=== PATIENT | female | born 1950 | race Caucasian/White ===

== ENCOUNTER 2017-05-28 12:51 | Emergency (ER) | payer OTHER ==
[2017-05-28 13:15] VITALS: BMI 26.9
[2017-05-28] MEDS ORDERED: diazePAM 2 MG TABLET PO ONE (13:35)
--- NOTE | 2017-05-28 13:39 | PDOC ---
History of Present Illness - General Chief Complaint: Back Pain Stated Complaint: LOWER BACK PAIN Time Seen by Provider: 05/28/17 12:53 - History of Present Illness Initial Comments: 05/28/17 13:36 67 F with no PMH presents to ED with lower back pain x 2 days. Pt states that she first noticed mild back pain a week ago that acutely worsened yesterday. Pt denies any injuries or falls that she can recall. The pain is mainly localized to her L lower back. She states the pain is worse with standing and moving around. At rest, she states the pain is tolerable. Denies lower extremity numbness or weakness, denies loss of bowel or bladder control, denies saddle anesthesia. Pt notes that she was treated for a UTI and PNA earlier this month. She denies any dysuria at this time. Denies F/C. Denies CP/SOB. Past History - Past Medical History Allergies/Adverse Reactions: Allergies Allergy/AdvReac Type Severity Reaction Status Date / Time Penicillins Allergy Mild Verified 05/28/17 13:01 Home Medications: Ambulatory Orders Clonazepam 0.5 mg PO HS 05/28/17 Diphenoxylate HCl/Atropine [Diphenoxylate-Atrop 2.5-0.025] 10 each PO ASDIR Escitalopram Oxalate [Lexapro -] 15 mg PO DAILY 05/28/17 Omeprazole 40 mg PO DAILY 05/28/17 Ondansetron HCl [Zofran] 8 mg PO PRN PRN 05/28/17 Oxycodone HCl/Acetaminophen [Percocet 5-325 mg Tablet] 1 tab PO Q6H PRN #12 tablet MDD 4 tabs 05/28/17 COPD: No GI Disorders: Yes (coliits) Psychiatric Problems: Yes Other medical history: PNA 3 weeks ago,DIARRHEA X 3 WEEKS,ECOLI. - Suicide/Smoking/Psychosocial Hx Smoking History: Never smoked Hx Alcohol Use: No Drug/Substance Use Hx: No Substance Use Type: None Review of Systems - Review of Systems Comments:: 05/28/17 13:41 "GENERAL/CONSTITUTIONAL: No fever or chills. No weakness. HEAD, EYES, EARS, NOSE AND THROAT: No change in vision. No ear pain or discharge. No sore throat. CARDIOVASCULAR: No chest pain or shortness of breath. RESPIRATORY: No cough, wheezing, or hemoptysis. GASTROINTESTINAL: No nausea, vomiting, diarrhea or constipation. GENITOURINARY: No dysuria, frequency, or change in urination. MUSCULOSKELETAL: + lower back pain SKIN: No rash NEUROLOGIC: No headache, vertigo, loss of consciousness, or change in strength/ sensation. ENDOCRINE: No increased thirst. No abnormal weight change. HEMATOLOGIC/LYMPHATIC: No anemia, easy bleeding, or history of blood clots. ALLERGIC/IMMUNOLOGIC: No hives or skin allergy. " *Physical Exam - Vital Signs Last Vital Signs Temp Pulse Resp BP Pulse Ox 99.4 F 97 H 18 154/61 97 05/28/17 12:52 05/28/17 12:52 05/28/17 12:52 05/28/17 12:52 05/28/17 12:52 - Physical Exam Comments: 05/28/17 13:42 "GENERAL: Awake, alert, and fully oriented, in no acute distress HEAD: No signs of trauma EYES: PERRLA, EOMI, sclera anicteric, conjunctiva clear ENT: Auricles normal inspection, hearing grossly normal, nares patent, oropharynx clear without exudates. Moist mucosa NECK: Nontender, no stepoffs, Normal ROM, supple, no lymphadenopathy, JVD, or masses LUNGS: Breath sounds equal, clear to auscultation bilaterally. No wheezes, and no crackles HEART: Regular rate and rhythm, normal S1 and S2, no murmurs, rubs or gallops ABDOMEN: Soft, nontender, normoactive bowel sounds. No guarding, no rebound. No masses EXTREMITIES: Normal range of motion, no edema. No clubbing or cyanosis. No cords, erythema, or tenderness NEUROLOGICAL: Cranial nerves II through XII intact. 5/5 strength and sensation in all extremities, Normal speech, normal gait, normal cerebellar function SKIN: Warm, Dry, normal turgor, no rashes or lesions noted. BACK: + L paraspinal TTP, no midline tenderness, no stepoffs ED Treatment Course - LABORATORY CBC & Chemistry Diagram: 05/28/17 13:50 05/28/17 13:50 - RADIOLOGY Radiology Studies Ordered: Category Date Time Status CHEST X-RAY PORTABLE* [RAD] Stat Radiology 05/28/17 13:34 Ordered Medical Decision Making - Medical Decision Making 05/28/17 13:44 67 F with lower back pain x 1 week, acutely worsened yesterday. Possible sciatica vs herniated disc vs spinal stenosis. Pt with no neuro deficits, no symptoms to suggest cauda equina or cord compression. - Labs, UA - Pain control 05/28/17 16:47 Labs with K 2.8, repleted with PO potassium UA with small amount of blood, no infection Pt reassessed - now with significantly improved pain. Pt is well appearing, with normal vitals. Clinically stable for DC at this time. I discussed the physical exam findings, ancillary test results and final diagnoses with the patient. I answered all of the patient's questions. The patient was satisfied with the care received and felt comfortable with the discharge plan and treatment plan. The patient agrees to follow up with the primary care physician within 24-72 hours. *DC/Admit/Observation/Transfer Diagnosis at time of Disposition: Back pain - Discharge Dispostion Disposition: HOME Condition at time of disposition: Fair - Prescriptions Prescriptions: Oxycodone HCl/Acetaminophen [Percocet 5-325 mg Tablet] 1 tab PO Q6H PRN #12 tablet MDD 4 tabs PRN Reason: Back Pain - Referrals Referrals: Kevin Graham MD [Staff Physician] - - Patient Instructions Printed Discharge Instructions: DI for Low Back Pain Additional Instructions: Follow up with your primary care doctor on Wednesday. Call the number provided to make an appointment with an orthopedic surgeon for further evaluation of your lower back pain. If you experience worsening pain, fevers, weakness, numbness, or any other concerning symptoms, return to the ER immediately. - Post Discharge Activity - Attestations Physician Attestion: 05/28/17 16:49 I, Dr. Kevin Nogueira MD, attest that this document has been prepared under my direction and personally reviewed by me in its entirety. I further attest, that it accurately reflects all work, treatment, procedures and medical decision -making performed by me.
[2017-05-28] MEDS ORDERED: diazePAM 2 MG TABLET ONE (13:50)
[2017-05-28 14:20] LABS: BASO % 0.3 % (0-2.0); EOS % 0.1 % (0-4.5); HEMATOCRIT 38.8 % (32.4-45.2); HEMOGLOBIN 13.2 GM/dl (10.7-15.3); LYMPH % 8.7 % (8-40); MCH 30.7 pg (25.7-33.7); MEAN CELL VOLUME 90.1 fl (80-96); MEAN PLT VOLUME 8.1 fl (7.5-11.1); MONO % 6.7 % (3.8-10.2); NEUT % 84.2 % (42.8-82.8); PLATELET COUNT 290 K/MM3 (134-434); RDW 13.1 % (11.6-15.6); WHITE BLOOD COUNT 9.4 K/mm3 (4.0-10.8)
[2017-05-28 14:24] LABS: ALBUMIN 3.2 g/dl (3.5-5.0); ALK PHOS 70 U/L (32-92); ANION GAP 9 (8-16); BILIRUBIN,TOTAL 0.9 mg/dl (0.2-1.0); BLOOD UREA NITROGEN 9 mg/dl (7-18); CALCIUM 8.3 mg/dl (8.4-10.2); CHLORIDE 103 mmol/L (98-107); CO2 24 mmol/L (22-28); CREATININE 0.5 mg/dl (0.6-1.3); GLUCOSE,RANDOM 108 mg/dl (74-106); SGOT/AST 12 U/L (10-42); SGPT/ALT 10 U/L (10-40); SODIUM 136 mmol/L (136-145); TOT PROT 6.1 g/dl (6.4-8.3)
[2017-05-28 14:30] LABS: POTASSIUM 2.8 mmol/L (3.5-5.1)
[2017-05-28] MEDS ORDERED: POTASSIUM CHLORIDE TABS 20 MEQ TABLET.ER (FP) PO ONE ×2 (14:34→14:46)
[2017-05-28 15:56] LABS: PH,URINE 5.5 (4.5-8); URINE APPEARANCE Cloudy; URINE BILIRUBIN 1+ (NEGATIVE); URINE BLOOD Trace-intact (NEGATIVE); URINE GLUCOSE (UA) Negative (NEGATIVE); URINE KETONE Trace (NEGATIVE); URINE LEUK ESTERASE Negative (NEGATIVE); URINE NITRITE Negative (NEGATIVE); URINE PROTEIN 1+ (NEGATIVE); URINE UROBILINOGEN 0.2 (0.2-1.0)
[2017-05-28 15:57] LABS: URINE COLOR DK YELLOW
[2017-05-28 17:03] VITALS: BP 146/84; PULSE 86; TEMP 99
[2017-05-28 17:47] LABS: AMORP URATES MANY /hpf (NONE SEEN); EPI CELLS FEW /HPF; URINE WBC 0-2 (0-5)
[2017-05-28 17:48] LABS: URINE BACTERIA FEW /hpf (NEGATIVE)
--- NOTE | 2017-05-29 18:14 | EKG ---
Test Reason : Blood Pressure : / mmHG Vent. Rate : 090 BPM Atrial Rate : 090 BPM P-R Int : 168 ms QRS Dur : 078 ms QT Int : 368 ms P-R-T Axes : 065 016 049 degrees QTc Int : 450 ms NORMAL SINUS RHYTHM NORMAL ECG WHEN COMPARED WITH ECG OF 11-MAR-2007 09:06, NO SIGNIFICANT CHANGE WAS FOUND Confirmed by MD IGNACIO, DON ([id number]) on 05/29/2017 6:13:54 PM Referred By: ANY MASTERS Confirmed By:DON PIERRE MD
== END 2017-05-28 17:00 | disposition home or self-care (01) ==
LOC: FER 12:51
DX: M54.5 Low back pain (principal)
CPT/HCPCS: 36415; 71045-TC-FY; 80053; 81003; 81015; 82550; 84484; 85025; 93005; 99284-25

== ENCOUNTER 2018-06-06 17:05 | Inpatient (IN) | payer OTHER ==
--- NOTE | 2018-06-06 18:07 | PDOC ---
History of Present Illness - General Chief Complaint: Redness To Affected Area Stated Complaint: CELLULITIS Time Seen by Provider: 06/06/18 17:25 History Source: Patient Exam Limitations: No Limitations - History of Present Illness Initial Comments: 06/06/18 18:09 68y F hx of colitis, emphysema, presents with complaint of facial cellulitis. The patient states it started with some irritation of her eye yesterday, she tried to wash it out and it eventually resolved, but noticed discomfort to the lateral aspect of her L eye and L cheek yesterday that gradually worsened. pt endorses a fever to 102 at home yesterday. Pt dneneis any double vision, headache, neck pain, cough, cp, sob, n/v, abd pain, back pain. PMD: Dr. Colon Past History - Past Medical History Allergies/Adverse Reactions: Allergies Allergy/AdvReac Type Severity Reaction Status Date / Time Penicillins Allergy Mild Verified 05/28/17 13:01 Home Medications: Ambulatory Orders Clonazepam 0.5 mg PO HS PRN 05/28/17 Diphenoxylate HCl/Atropine [Diphenoxylate-Atrop 2.5-0.025] 1 each PO DAILY 05/28 Escitalopram Oxalate [Lexapro -] 15 mg PO DAILY 05/28/17 Omeprazole 40 mg PO DAILY 05/28/17 Ondansetron HCl [Zofran] 8 mg PO PRN PRN 05/28/17 COPD: No GI Disorders: Yes (coliits) Psychiatric Problems: Yes - Surgical History Abdominal Surgery: Yes (DOUBLE HERNIA REPAIR) Cholecystectomy: Yes - Suicide/Smoking/Psychosocial Hx Smoking History: Current every day smoker Number of Cigarettes Smoked Daily: 10 Information on smoking cessation initiated: Yes Hx Alcohol Use: Yes (SOCIAL) Drug/Substance Use Hx: Yes (MARIJUANA) Substance Use Type: None Review of Systems - Review of Systems Able to Perform ROS?: Yes Comments:: 06/06/18 18:25 Constitutional -+Fever, no reported Chills, HEENT: +facial redness/swelling no reported vision changes, sore throat Respiratory: no reported cough, sob, hemoptysis Cardiac: no reported chest pain, palpitations, light headedness, leg swelling Abd/GI: no reported abd pain, nausea, vomiting, blood per rectum, melena, diarrhea : no reported dysuria, frequency, discharge Musculskelatal - no reported back pain, joint swelling skin - no reported bruising, erythema, rash neurological: no reported headache, numbness, focal weakness, tingling, ataxia, hematologic: no reported easy bruising, easy bleeding *Physical Exam - Vital Signs Last Vital Signs Temp Pulse Resp BP Pulse Ox 99.9 F H 88 18 144/71 100 06/06/18 17:07 06/06/18 17:07 06/06/18 17:07 06/06/18 17:07 06/06/18 17:07 - Physical Exam Comments: 06/06/18 18:25 GENERAL: The patient is awake, alert, and fully oriented, Nontoxic - in no acute distress. HEAD: Normocephalic, erythema/swelling/warmth of L face from L supraorbital ridge to latearl canthus to L cheek, no mastoid tenderness, no associated crepitus or areas of fluctuance EYES: extraocular movements intact, sclera anicteric, conjunctiva clear. ENT: Normal voice, dry mmm, some bulging of the L tm, no swelling of tongue or intraoral structures. NECK: Normal range of motion, supple, mild ttp to lateral aspect of L neck LUNGS: Breath sounds equal, clear to auscultation bilaterally. No wheezes, no rhonchi, no rales. HEART: Regular rate and rhythm, normal S1 and S2 without murmur, rub or gallop. ABDOMEN: Soft, nontender, normoactive bowel sounds. No guarding, no rebound. . No CVA tenderness EXTREMITIES: Normal range of motion, no edema. No clubbing or cyanosis. No cords, erythema, or tenderness. NEUROLOGICAL: No facial assymetry, Normal speech, PSYCH: Normal mood, normal affect. SKIN: Warm, Dry, normal turgor, ED Treatment Course - LABORATORY CBC & Chemistry Diagram: 06/07/18 07:14 06/06/18 18:45 Medical Decision Making - Medical Decision Making 06/06/18 18:33 susepct facial cellulitis sepsis orderset obtained will start vancomycin consider CT to eval extent of cellultis to r/o invovlement of deper neck structures *DC/Admit/Observation/Transfer Diagnosis at time of Disposition: Facial cellulitis - Discharge Dispostion Condition at time of disposition: Stable - Referrals - Patient Instructions - Post Discharge Activity
[2018-06-06] MEDS ORDERED: VANCOMYCIN 1 GM in D5W (PRE-DOCKED) 1,000 MG/250 ML IVPB ONE (18:38)
[2018-06-06] MEDS ORDERED: VANCOMYCIN 1,000 MG VIAL (RESTRICTED TO ID ONLY) ONE (18:48)
[2018-06-06 19:14] LABS: BASO % 0.5 % (0-2.0); EOS % 0.2 % (0-4.5); HEMATOCRIT 37.4 % (32.4-45.2); HEMOGLOBIN 12.2 GM/dl (10.7-15.3); LYMPH % 12.7 % (8-40); MCH 29.9 pg (25.7-33.7); MCHC 32.6 g/dl (32.0-36.0); MEAN CELL VOLUME 91.5 fl (80-96); MEAN PLT VOLUME 9.3 fl (7.5-11.1); MONO % 5.6 % (3.8-10.2); PLATELET COUNT 203 K/MM3 (134-434); RBC 4.09 M/mm3 (3.60-5.2); RDW 14.6 % (11.6-15.6); WHITE BLOOD COUNT 8.1 K/mm3 (4.0-10.8)
[2018-06-06 19:26] LABS: ALBUMIN 3.5 g/dl (3.4-5.0); ALK PHOS 75 U/L (45-117); ANION GAP 10 MMOL/L (8-16); BILIRUBIN,TOTAL 0.7 mg/dl (0.2-1); BLOOD UREA NITROGEN 12 mg/dl (7-18); CALCIUM 8.7 mg/dl (8.5-10); CHLORIDE 101 mmol/L (98-107); CO2 25 mmol/L (21-32); CREATININE 0.8 mg/dl (0.55-1.3); GLUCOSE,RANDOM 95 mg/dl (74-106); POTASSIUM 3.6 mmol/L (3.5-5.1); SGOT/AST 13 U/L (15-37); SGPT/ALT 10 U/L (13-61); SODIUM 136 mmol/L (136-145); TOT PROT 6.3 g/dl (6.4-8.2)
[2018-06-06 19:29] LABS: INR 1.3 (0.82-1.09); PROTHROMBIN TIME (PATIENT) 14.5 SEC (10.2-13.0)
--- NOTE | 2018-06-06 19:29 | PDOC ---
*Physical Exam - Vital Signs Last Vital Signs Temp Pulse Resp BP Pulse Ox 99.9 F H 88 18 144/71 100 06/06/18 17:07 06/06/18 17:07 06/06/18 17:07 06/06/18 17:07 06/06/18 17:07 ED Treatment Course - LABORATORY CBC & Chemistry Diagram: 06/06/18 18:45 06/06/18 18:45 - ADDITIONAL ORDERS Additional order review: Laboratory Results 06/06/18 06/06/18 06/06/18 18:50 18:45 18:45 PT with INR 14.5 H INR 1.30 H PTT (Actin FS) 26.0 Sodium 136 Potassium 3.6 Chloride 101 Carbon Dioxide 25 Anion Gap 10 BUN 12 Creatinine 0.8 Creat Clearance w eGFR 71.12 Random Glucose 95 Calcium 8.7 Total Bilirubin 0.7 AST 13 L ALT 10 L Alkaline Phosphatase 75 Troponin I Cancelled Total Protein 6.3 L Albumin 3.5 06/06/18 18:45 RBC 4.09 MCV 91.5 MCHC 32.6 RDW 14.6 D MPV 9.3 Neutrophils % 81.0 Lymphocytes % 12.7 Monocytes % 5.6 Eosinophils % 0.2 Basophils % 0.5 - Medications Given in the ED: ED Medications Discontinued Medications Generic Name Dose Route Start Last Admin Trade Name Freq PRN Reason Stop Dose Admin Vancomycin HCl 1,000 mg 06/06/18 18:38 06/06/18 18:55 Vancomycin (Pre-Docked) IVPB 06/06/18 18:39 1,000 mg ONCE ONE Administration Protocol Progress Note - Progress Note Progress Note: Care of this patient received from . Patient being treated for left-sided facial cellulitis; case discussed with [facility] hospitalist service and she was admitted to Dr. Llanes's service. Facial CT with contrast performed. Interpretation by : No evidence of deep-seated fluid collection/abscess seen. Left parotid gland is slightly larger than the right parotid gland so acute parotiditis not fully ruled out. Left-sided facial edema consistent with cellulitis noted *DC/Admit/Observation/Transfer Diagnosis at time of Disposition: Facial cellulitis - Discharge Dispostion Condition at time of disposition: Stable Decision to Admit order: Yes - Referrals - Patient Instructions - Post Discharge Activity
[2018-06-06 20:36] LABS: VENOUS PC02 40.2 mmHg (41-51); VENOUS PH 7.43 (7.31-7.41); VENOUS PO2 33.8 mmHg (30-40)
--- NOTE | 2018-06-06 21:35 | HP ---
CHIEF COMPLAINT: irritation to left facial/upper cheek and left eye swelling for 2 days, +fever with maximum of 102.3 PCP:Dr. Robinson Cortes HISTORY OF PRESENT ILLNESS: 68 year old female with history of colitis,emphysema and anxiety who presents with irritation to left facial/upper cheek swelling/erythema and left orbital swelling ongoing for 2 days. She reported having a fever yesterday of 102.3 yesterday. She tried to wash it out with water but continued to have heat and swelling . She was found to have left facial cellulitis. Pt denied any double/ blurry vision, headache, neck pain, cough, chest pain, sob, nausea, vomiting, abdominal or back pain. Labs notable for a normal WBC and lactic acid level. She was given one dosage of IV Vancomycin. She is pending a CT of bone and facial. She is being admitted to observation for further medical treatment. Recent Travel: denies PAST MEDICAL HISTORY: emphysema colitis anxiety PAST SURGICAL HISTORY: denies Social History: Smoking:denies Alcohol:denies Drugs: denies Family History: noncontributory Allergies Penicillins Allergy (Mild, Verified 05/28/17 13:01) HOME MEDICATIONS: Home Medications Medication Instructions Recorded Clonazepam 0.5 mg PO HS PRN 05/28/17 Diphenoxylate HCl/Atropine 10 each PO ASDIR 05/28/17 [Diphenoxylate-Atrop 2.5-0.025] Escitalopram Oxalate [Lexapro -] 15 mg PO DAILY 05/28/17 Omeprazole 40 mg PO DAILY 05/28/17 Ondansetron HCl [Zofran] 8 mg PO PRN PRN 05/28/17 REVIEW OF SYSTEMS CONSTITUTIONAL: Absent: fever, chills, diaphoresis, generalized weakness, malaise, loss of appetite, weight change HEENT: Absent: rhinorrhea, nasal congestion, throat pain, throat swelling, difficulty swallowing, mouth swelling, ear pain, eye pain, visual changes,left facial/ upper cheek and orbital swelling with heat CARDIOVASCULAR: Absent: chest pain, syncope, palpitations, irregular heart rate, lightheadedness , peripheral edema RESPIRATORY: Absent: cough, shortness of breath, dyspnea with exertion, orthopnea, wheezing, stridor, hemoptysis GASTROINTESTINAL: Absent: abdominal pain, abdominal distension, nausea, vomiting, diarrhea, constipation, melena, hematochezia GENITOURINARY: Absent: dysuria, frequency, urgency, hesitancy, hematuria, flank pain, genital pain MUSCULOSKELETAL: Absent: myalgia, arthralgia, joint swelling, back pain, neck pain SKIN: Absent: rash, itching, pallor HEMATOLOGIC/IMMUNOLOGIC: Absent: easy bleeding, easy bruising, lymphadenopathy, frequent infections ENDOCRINE: Absent: unexplained weight gain, unexplained weight loss, heat intolerance, cold intolerance NEUROLOGIC: Absent: headache, focal weakness or paresthesias, dizziness, unsteady gait, seizure, mental status changes, bladder or bowel incontinence PSYCHIATRIC: Absent: anxiety, depression, suicidal or homicidal ideation, hallucinations. PHYSICAL EXAMINATION Vital Signs - 24 hr 06/06/18 06/06/18 17:07 20:45 Temperature 99.9 F H 100.3 F H Pulse Rate 88 Pulse Rate [ 84 Right Radial] Respiratory 18 18 Rate Blood Pressure 144/71 Blood Pressure 149/67 [Left Arm] O2 Sat by Pulse 100 95 Oximetry (%) GENERAL: awake, alert and fully oriented HEAD: normal EYES: pupils equal, round and reactive to light, left eyelid with edema EARS, NOSE, THROAT: ears normal nares patent oropharynx clear without exudates NECK: normal range of motion LUNGS: breath sounds equal and clear to auscultation bilaterally no wheezes no crackles no use of accessory muscle use HEART: regular rate and rhythm, normal S1 and S2 ABDOMEN: soft nontender not distended normoactive bowel sounds no guarding no rebound no masses MUSCULOSKELETAL: normal range of motion at all joints no bony deformities or tenderness UPPER EXTREMITIES warm well-perfused no cyanosis LOWER EXTREMITIES: 2+ pulses warm well-perfused no pitting edema NEUROLOGICAL: normal speech PSYCHIATRIC: cooperative SKIN: warm and dry, left upper cheek with swelling and heat Laboratory Results - last 24 hr 06/06/18 06/06/18 06/06/18 18:45 18:45 18:45 WBC 8.1 RBC 4.09 Hgb 12.2 Hct 37.4 MCV 91.5 MCH 29.9 MCHC 32.6 RDW 14.6 D Plt Count 203 MPV 9.3 Absolute Neuts (auto) 6.6 Neutrophils % 81.0 Lymphocytes % 12.7 Monocytes % 5.6 Eosinophils % 0.2 Basophils % 0.5 PT with INR 14.5 H INR 1.30 H PTT (Actin FS) 26.0 VBG pH 7.43 H POC VBG pCO2 40.2 L POC VBG pO2 33.8 VBG HCO3 26.3 VBG O2 Sat (Willian) 60.9 L VBG Base Excess 2.3 H Sodium Potassium Chloride Carbon Dioxide Anion Gap BUN Creatinine Creat Clearance w eGFR Random Glucose Lactic Acid Calcium Total Bilirubin AST ALT Alkaline Phosphatase Troponin I Total Protein Albumin Urine Color Urine Appearance Urine pH Urine Protein Urine Glucose (UA) Urine Ketones Urine Blood Urine Nitrite Urine Bilirubin Urine Urobilinogen Ur Leukocyte Esterase Urine RBC Urine WBC Urine Bacteria 06/06/18 06/06/18 06/06/18 18:45 18:45 18:45 WBC RBC Hgb Hct MCV MCH MCHC RDW Plt Count MPV Absolute Neuts (auto) Neutrophils % Lymphocytes % Monocytes % Eosinophils % Basophils % PT with INR INR PTT (Actin FS) VBG pH POC VBG pCO2 POC VBG pO2 VBG HCO3 VBG O2 Sat (Willian) VBG Base Excess Sodium 136 Potassium 3.6 Chloride 101 Carbon Dioxide 25 Anion Gap 10 BUN 12 Creatinine 0.8 Creat Clearance w eGFR 71.12 Random Glucose 95 Lactic Acid 0.8 Calcium 8.7 Total Bilirubin 0.7 AST 13 L ALT 10 L Alkaline Phosphatase 75 Troponin I < 0.03 Total Protein 6.3 L Albumin 3.5 Urine Color Urine Appearance Urine pH Urine Protein Urine Glucose (UA) Urine Ketones Urine Blood Urine Nitrite Urine Bilirubin Urine Urobilinogen Ur Leukocyte Esterase Urine RBC Urine WBC Urine Bacteria 06/06/18 06/06/18 18:50 20:35 WBC RBC Hgb Hct MCV MCH MCHC RDW Plt Count MPV Absolute Neuts (auto) Neutrophils % Lymphocytes % Monocytes % Eosinophils % Basophils % PT with INR INR PTT (Actin FS) VBG pH POC VBG pCO2 POC VBG pO2 VBG HCO3 VBG O2 Sat (Willian) VBG Base Excess Sodium Potassium Chloride Carbon Dioxide Anion Gap BUN Creatinine Creat Clearance w eGFR Random Glucose Lactic Acid Calcium Total Bilirubin AST ALT Alkaline Phosphatase Troponin I Cancelled Total Protein Albumin Urine Color Yellow Urine Appearance Clear Urine pH 5.5 Urine Protein 1+ H Urine Glucose (UA) Negative Urine Ketones 1+ H Urine Blood 2+ H Urine Nitrite Negative Urine Bilirubin 1+ H Urine Urobilinogen 0.2 Ur Leukocyte Esterase Negative Urine RBC 5-10 Urine WBC 0-2 Urine Bacteria Few ASSESSMENT/PLAN: 68 year old female with history of colitis,emphysema and anxiety who presents with irritation with left facial/upper cheek swelling/erythema and left orbital swelling for 2 days. She reported having a fever yesterday of 102.3. Left Facial Cellulitis Patient is currently afebrile.WBC and lactic acid level are normal. Blood cultures are pending. She received one dosage of IV Vancomycin. Patient has a Penicillin allergy. Continue with IV Vancomycin. CT of bone and facial pending. ID consulted-Dr. Starr consulted. Emphysema No acute exacerbation. DVT Prophylaxsis Continue with SCD's. Anxiety Controlled. Continue with clonazepam. Visit type - Emergency Visit Emergency Visit: Yes ED Registration Date: 06/06/18 Care time: The patient presented to the Emergency Department on the above date and was hospitalized for further evaluation of their emergent condition. - New Patient This patient is new to me today: Yes Date on this admission: 06/07/18 - Critical Care Critical Care patient: No
[2018-06-06 22:18] VITALS: BMI 25.9
[2018-06-07 08:08] LABS: BASO % 0.2 % (0-2.0); EOS % 0.6 % (0-4.5); HEMATOCRIT 35.5 % (32.4-45.2); LYMPH % 14.6 % (8-40); MCHC 33.8 g/dl (32.0-36.0); MEAN CELL VOLUME 91.8 fl (80-96); MEAN PLT VOLUME 9.3 fl (7.5-11.1); MONO % 6.7 % (3.8-10.2); NEUT % 77.9 % (42.8-82.8); PLATELET COUNT 173 K/MM3 (134-434); RBC 3.87 M/mm3 (3.60-5.2); RDW 13.9 % (11.6-15.6); WHITE BLOOD COUNT 6.6 K/mm3 (4.0-10.8)
[2018-06-07] MEDS ORDERED: ACETAMINOPHEN 325 MG TABLET (FP) PO PRN (08:12)
[2018-06-07] MEDS ORDERED: VANCOMYCIN 1 GM in D5W (PRE-DOCKED) 1,000 MG/250 ML IVPB ONE (10:00)
[2018-06-07] MEDS: PANTOPRAZOLE 40 MG TABLET (FP) PO SCH (10:00)
--- NOTE | 2018-06-07 11:14 | PN ---
Physical Exam: SUBJECTIVE: Patient seen and examined at bedside. Denies eye pain. Complains of itchiness to inflamed areas of left side of face. OBJECTIVE: Vital Signs Period Temp Pulse Resp BP Sys/Ferrell Pulse Ox Last 24 Hr 98.6 F-100.4 F 74-93 18-20 120-156/56-71 94-100 GENERAL: The patient is awake, alert, and fully oriented, in no acute distress. HEAD: Deeply erythematous rash left side of face, from forehead to mandible, circumferential around the left eye, eyelid swelling no pus, no exudate EYES: PERRL, extraocular movements intact, sclera anicteric, conjunctiva clear. ENT: Left s NECK: Trachubtonsillar lymph node large, tender LUNGS: Breath sounds equal, clear to auscultation bilaterally, no wheezes, no crackles, no accessory muscle use. HEART: Regular rate and rhythm, S1, S2 ABDOMEN: Soft, nontender, nondistended EXTREMITIES: 2+ pulses, warm, well-perfused, no edema. NEUROLOGICAL: Cranial nerves II through XII grossly intact. Normal speech, self positions easily Laboratory Results - last 24 hr 06/06/18 06/06/18 06/06/18 18:45 18:45 18:45 WBC 8.1 RBC 4.09 Hgb 12.2 Hct 37.4 MCV 91.5 MCH 29.9 MCHC 32.6 RDW 14.6 D Plt Count 203 MPV 9.3 Absolute Neuts (auto) 6.6 Neutrophils % 81.0 Lymphocytes % 12.7 Monocytes % 5.6 Eosinophils % 0.2 Basophils % 0.5 PT with INR 14.5 H INR 1.30 H PTT (Actin FS) 26.0 VBG pH 7.43 H POC VBG pCO2 40.2 L POC VBG pO2 33.8 VBG HCO3 26.3 VBG O2 Sat (Willian) 60.9 L VBG Base Excess 2.3 H Sodium Potassium Chloride Carbon Dioxide Anion Gap BUN Creatinine Creat Clearance w eGFR Random Glucose Lactic Acid Calcium Total Bilirubin AST ALT Alkaline Phosphatase Troponin I Total Protein Albumin Urine Color Urine Appearance Urine pH Urine Protein Urine Glucose (UA) Urine Ketones Urine Blood Urine Nitrite Urine Bilirubin Urine Urobilinogen Ur Leukocyte Esterase Urine RBC Urine WBC Urine Bacteria 06/06/18 06/06/18 06/06/18 18:45 18:45 18:45 WBC RBC Hgb Hct MCV MCH MCHC RDW Plt Count MPV Absolute Neuts (auto) Neutrophils % Lymphocytes % Monocytes % Eosinophils % Basophils % PT with INR INR PTT (Actin FS) VBG pH POC VBG pCO2 POC VBG pO2 VBG HCO3 VBG O2 Sat (Willian) VBG Base Excess Sodium 136 Potassium 3.6 Chloride 101 Carbon Dioxide 25 Anion Gap 10 BUN 12 Creatinine 0.8 Creat Clearance w eGFR 71.12 Random Glucose 95 Lactic Acid 0.8 Calcium 8.7 Total Bilirubin 0.7 AST 13 L ALT 10 L Alkaline Phosphatase 75 Troponin I < 0.03 Total Protein 6.3 L Albumin 3.5 Urine Color Urine Appearance Urine pH Urine Protein Urine Glucose (UA) Urine Ketones Urine Blood Urine Nitrite Urine Bilirubin Urine Urobilinogen Ur Leukocyte Esterase Urine RBC Urine WBC Urine Bacteria 06/06/18 06/06/18 06/07/18 18:50 20:35 07:14 WBC 6.6 RBC 3.87 Hgb 12.0 Hct 35.5 MCV 91.8 MCH 31.0 MCHC 33.8 RDW 13.9 Plt Count 173 MPV 9.3 Absolute Neuts (auto) 5.2 Neutrophils % 77.9 Lymphocytes % 14.6 Monocytes % 6.7 Eosinophils % 0.6 Basophils % 0.2 PT with INR INR PTT (Actin FS) VBG pH POC VBG pCO2 POC VBG pO2 VBG HCO3 VBG O2 Sat (Willian) VBG Base Excess Sodium Potassium Chloride Carbon Dioxide Anion Gap BUN Creatinine Creat Clearance w eGFR Random Glucose Lactic Acid Calcium Total Bilirubin AST ALT Alkaline Phosphatase Troponin I Cancelled Total Protein Albumin Urine Color Yellow Urine Appearance Clear Urine pH 5.5 Urine Protein 1+ H Urine Glucose (UA) Negative Urine Ketones 1+ H Urine Blood 2+ H Urine Nitrite Negative Urine Bilirubin 1+ H Urine Urobilinogen 0.2 Ur Leukocyte Esterase Negative Urine RBC 5-10 Urine WBC 0-2 Urine Bacteria Few Active Medications Generic Name Dose Route Start Last Admin Trade Name Freq PRN Reason Stop Dose Admin Acetaminophen 650 mg 06/07/18 08:12 Tylenol - PO Q6H PRN FEVER Clonazepam 0.5 mg 06/06/18 19:47 Klonopin - PO HS PRN INSOMNIA Diphenhydramine HCl 25 mg 06/07/18 10:52 Benadryl - PO 06/07/18 10:53 ONCE ONE Pantoprazole Sodium 40 mg 06/07/18 10:00 06/07/18 10:00 Protonix - PO 40 mg DAILY [facility] Administration Vancomycin HCl 1,000 mg 06/08/18 10:00 Vancomycin (Pre-Docked) IVPB DAILY [facility] Protocol ASSESSMENT/PLAN 68 year-old female with a PMH significant for emphysema and colitis, admitted for facial cellulitis. Four days ago was putting on makeup and stuck her left eye with a mascara wand. The next day she started to develop pain and swelling to the left eye and left cheek. Fever at home to 102. Left facial cellulitis --Tm 100.4, no leukocytosis --meropenem (day #1) --cultures pending --low dose topical cortisone for pruritis Visit type - Emergency Visit Emergency Visit: Yes ED Registration Date: 06/06/18 Care time: The patient presented to the Emergency Department on the above date and was hospitalized for further evaluation of their emergent condition. - New Patient This patient is new to me today: Yes Date on this admission: 06/07/18 - Critical Care Critical Care patient: No
[2018-06-07] MEDS ORDERED: diphenhydrAMINE HCL 25 MG CAPSULE (FP) PO ONE (11:45)
--- NOTE | 2018-06-07 14:23 | EKG ---
Test Reason : Blood Pressure : / mmHG Vent. Rate : 092 BPM Atrial Rate : 092 BPM P-R Int : 150 ms QRS Dur : 078 ms QT Int : 352 ms P-R-T Axes : 072 008 039 degrees QTc Int : 435 ms POOR DATA QUALITY, INTERPRETATION MAY BE ADVERSELY AFFECTED NORMAL SINUS RHYTHM NORMAL ECG WHEN COMPARED WITH ECG OF 28-MAY-2017 14:15, NO SIGNIFICANT CHANGE WAS FOUND Confirmed by MD Shirley, Romie ([id number]) on 06/07/2018 2:22:51 PM Referred By: Kunal BECKHAM Confirmed By:Romie Watson MD
[2018-06-07] MEDS ORDERED: HYDROCORTISONE 0.5% TOPICAL CREAM 30 GM TUBE TP PRN (15:10)
[2018-06-07] MEDS: ESCITALOPRAM OXALATE 10 MG TABLET (FP) PO SCH (15:50)
--- NOTE | 2018-06-07 16:18 | CON.ID ---
Consult Consult Specialty:: infectious diseases - Past Medical History ...: No - Alcohol/Substance Use Hx Alcohol Use: Yes (SOCIAL) - Smoking History Smoking history: Current every day smoker Have you smoked in the past 12 months: Yes Aproximately how many cigarettes per day: 10 Home Medications - Allergies Allergies/Adverse Reactions: Allergies Allergy/AdvReac Type Severity Reaction Status Date / Time Penicillins Allergy Mild Verified 05/28/17 13:01 - Home Medications Home Medications: Ambulatory Orders Clonazepam 0.5 mg PO HS PRN 05/28/17 Diphenoxylate HCl/Atropine [Diphenoxylate-Atrop 2.5-0.025] 10 each PO ASDIR Escitalopram Oxalate [Lexapro -] 15 mg PO DAILY 05/28/17 Omeprazole 40 mg PO DAILY 05/28/17 Ondansetron HCl [Zofran] 8 mg PO PRN PRN 05/28/17 Physical Exam Vital Signs: Vital Signs Temperature 98.5 F 06/07/18 14:11 Pulse Rate 75 06/07/18 14:11 Respiratory Rate 16 06/07/18 14:11 Blood Pressure 120/56 L 06/07/18 14:11 O2 Sat by Pulse Oximetry (%) 96 06/07/18 14:11 Labs: CBC, BMP 06/07/18 07:14 06/06/18 18:45
[2018-06-07] MEDS ORDERED: PT OWN MED DRAWER 7, Y5N ONE (18:02)
[2018-06-07] MEDS ORDERED: MEROPENEM 1 GM VIAL (RESTRICTED TO ID) IVPB ONE (18:08)
[2018-06-07] MEDS ORDERED: DEXTROSE 5%-WATER 100 ML IVPB ONE (18:08)
[2018-06-07] MEDS: MEROPENEM 1 GM in DEXTROSE 5%-WATER 100 ML IVPB SCH (18:14)
[2018-06-08] MEDS: MEROPENEM 1 GM in DEXTROSE 5%-WATER 100 ML IVPB SCH ×3 (02:11→17:37)
[2018-06-08] MEDS ORDERED: DEXTROSE 5%-WATER 100 ML IVPB ONE ×3 (03:01→17:15)
[2018-06-08] MEDS ORDERED: MEROPENEM 1 GM VIAL (RESTRICTED TO ID) IVPB ONE ×3 (03:02→17:16)
[2018-06-08] MEDS ORDERED: VANCOMYCIN 1 GM in D5W (PRE-DOCKED) 1,000 MG/250 ML IVPB SCH (10:00)
[2018-06-08] MEDS ORDERED: PT OWN MED DRAWER 7, Y5N ONE (10:03)
[2018-06-08] MEDS: ESCITALOPRAM OXALATE 10 MG TABLET (FP) PO SCH (10:27)
[2018-06-08] MEDS: PANTOPRAZOLE 40 MG TABLET (FP) PO SCH (10:27)
[2018-06-08] MEDS ORDERED: DIPHENOXYLATE 2.5/ATROPINE.025 1 COMBO TABLET PO SCH (13:30)
--- NOTE | 2018-06-08 13:40 | PN ---
Physical Exam: SUBJECTIVE: Patient seen and examined at bedside. Anxious to go home. OBJECTIVE: Vital Signs Period Temp Pulse Resp BP Sys/Ferrell Pulse Ox Last 24 Hr 97.8 F-98.6 F 66-86 16-18 119-145/51-74 94-98 GENERAL: The patient is awake, alert, and fully oriented, in no acute distress. HEAD: Erythema is resolving, less swelling around left eye EYES: PERRL, extraocular movements intact, sclera anicteric, conjunctiva clear. ENT: Left s NECK: Trachubtonsillar lymph node large, tender LUNGS: Breath sounds equal, clear to auscultation bilaterally, no wheezes, no crackles, no accessory muscle use. HEART: Regular rate and rhythm, S1, S2 ABDOMEN: Soft, nontender, nondistended EXTREMITIES: 2+ pulses, warm, well-perfused, no edema. NEUROLOGICAL: Cranial nerves II through XII grossly intact. Normal speech, self positions easily Active Medications Generic Name Dose Route Start Last Admin Trade Name Freq PRN Reason Stop Dose Admin Acetaminophen 650 mg 06/07/18 08:12 Tylenol - PO Q6H PRN FEVER Clonazepam 0.5 mg 06/06/18 19:47 06/08/18 00:00 Klonopin - PO 0.5 mg HS PRN Administration INSOMNIA Diphenoxylate HCl/Atropine 10 combo 06/08/18 13:30 Lomotil - PO DAILY [facility] Escitalopram Oxalate 15 mg 06/07/18 15:45 06/08/18 10:27 Lexapro - PO 15 mg DAILY [facility] Administration Hydrocortisone 1 applic 06/07/18 15:10 Hytone 0.5% Cream - TP Q12H PRN WOUND CARE Meropenem 1 gm/ Dextrose 100 mls @ 200 mls/hr 06/07/18 18:00 06/08/18 11:02 IVPB 200 mls/hr Q8H-IV [facility] Administration Pantoprazole Sodium 40 mg 06/07/18 10:00 06/08/18 10:27 Protonix - PO 40 mg DAILY [facility] Administration Vancomycin HCl 1,000 mg 06/08/18 10:00 Vancomycin (Pre-Docked) IVPB DAILY [facility] Protocol ASSESSMENT/PLAN 68 year-old female with a PMH significant for emphysema and colitis, admitted for facial cellulitis. Four days ago was putting on makeup and stuck her left eye with a mascara wand. The next day she started to develop pain and swelling to the left eye and left cheek. Left facial cellulitis --significant improvement, afebrile 24 hours, no leukocytosis --meropenem (day #2) --cultures NGTD FEN Fluids: PO intake adequate Electrolytes: replete as indicated Nutrition: regular diet DVT prohylaxis: oob, ambulation, lovenox Dispo: continues to require inpatient care. Full code. Visit type - Emergency Visit Emergency Visit: Yes ED Registration Date: 06/08/18 Care time: The patient presented to the Emergency Department on the above date and was hospitalized for further evaluation of their emergent condition. - New Patient This patient is new to me today: No - Critical Care Critical Care patient: No
[2018-06-08] MEDS: ENOXAPARIN NA (PORCINE) 40 MG/0.4 ML DISP.SYRIN SQ SCH (14:16)
--- NOTE | 2018-06-08 15:35 | PN ---
Progress Note, Physician - Current Medication List Current Medications: Active Medications Acetaminophen (Tylenol -) 650 mg PO Q6H PRN PRN Reason: FEVER Clonazepam (Klonopin -) 0.5 mg PO HS PRN PRN Reason: INSOMNIA Last Admin: 06/08/18 00:00 Dose: 0.5 mg Diphenoxylate HCl/Atropine (Lomotil -) 10 combo PO DAILY [facility] Enoxaparin Sodium (Lovenox -) 40 mg SQ DAILY [facility] Last Admin: 06/08/18 14:16 Dose: 40 mg Escitalopram Oxalate (Lexapro -) 15 mg PO DAILY [facility] Last Admin: 06/08/18 10:27 Dose: 15 mg Hydrocortisone (Hytone 0.5% Cream -) 1 applic TP Q12H PRN PRN Reason: WOUND CARE Meropenem 1 gm/ Dextrose 100 mls @ 200 mls/hr IVPB Q8H-IV [facility] Last Admin: 06/08/18 11:02 Dose: 200 mls/hr Pantoprazole Sodium (Protonix -) 40 mg PO DAILY [facility] Last Admin: 06/08/18 10:27 Dose: 40 mg - Objective Vital Signs: Vital Signs Temperature 98.0 F 06/08/18 14:25 Pulse Rate 66 06/08/18 14:25 Respiratory Rate 16 06/08/18 14:25 Blood Pressure 129/54 L 06/08/18 14:25 O2 Sat by Pulse Oximetry (%) 95 06/08/18 14:25 Labs: CBC, BMP 06/07/18 07:14 06/06/18 18:45 INR, PTT INR 1.30 (0.82-1.09) H 06/06/18 18:45
[2018-06-08] MEDS: clonazePAM 0.5 MG TABLET PO PRN ×2 (23:29)
[2018-06-09] MEDS ORDERED: DEXTROSE 5%-WATER 100 ML IVPB ONE ×3 (01:08→17:04)
[2018-06-09] MEDS ORDERED: MEROPENEM 1 GM VIAL (RESTRICTED TO ID) IVPB ONE ×3 (01:09→17:04)
[2018-06-09] MEDS: MEROPENEM 1 GM in DEXTROSE 5%-WATER 100 ML IVPB SCH ×3 (02:12→17:33)
--- NOTE | 2018-06-09 09:31 | PN ---
Physical Exam: SUBJECTIVE: Patient seen and examined. Walking in hallway. Feels "like a new person." OBJECTIVE: Vital Signs Period Temp Pulse Resp BP Sys/Ferrell Pulse Ox Last 24 Hr 97.8 F-98.2 F 64-71 16-19 129-152/54-63 94-96 GENERAL: The patient is awake, alert, and fully oriented, in no acute distress. HEAD: Erythema continues to resolve, swelling around eye resolved EYES: PERRL, extraocular movements intact, sclera anicteric, conjunctiva clear. LUNGS: Breath sounds equal, clear to auscultation bilaterally, no wheezes, no crackles, no accessory muscle use. HEART: Regular rate and rhythm, S1, S2 ABDOMEN: Soft, nontender, nondistended EXTREMITIES: 2+ pulses, warm, well-perfused, no edema. NEUROLOGICAL: Cranial nerves II through XII grossly intact. Normal speech, steady gait. Active Medications Generic Name Dose Route Start Last Admin Trade Name Freq PRN Reason Stop Dose Admin Acetaminophen 650 mg 06/07/18 08:12 Tylenol - PO Q6H PRN FEVER Clonazepam 0.5 mg 06/06/18 19:47 06/08/18 23:29 Klonopin - PO 0.5 mg HS PRN Administration INSOMNIA Diphenoxylate HCl/Atropine 1 combo 06/09/18 09:26 Lomotil - PO DAILY [facility] Enoxaparin Sodium 40 mg 06/08/18 14:00 06/08/18 14:16 Lovenox - SQ 40 mg DAILY [facility] Administration Escitalopram Oxalate 15 mg 06/07/18 15:45 06/08/18 10:27 Lexapro - PO 15 mg DAILY [facility] Administration Hydrocortisone 1 applic 06/07/18 15:10 Hytone 0.5% Cream - TP Q12H PRN WOUND CARE Meropenem 1 gm/ Dextrose 100 mls @ 200 mls/hr 06/07/18 18:00 06/09/18 02:12 IVPB 200 mls/hr Q8H-IV [facility] Administration Pantoprazole Sodium 40 mg 06/07/18 10:00 06/08/18 10:27 Protonix - PO 40 mg DAILY [facility] Administration ASSESSMENT/PLAN: 68 year-old female with a PMH significant for emphysema and colitis, admitted for facial cellulitis. Four days ago was putting on makeup and stuck her left eye with a mascara wand. The next day she started to develop pain and swelling to the left eye and left cheek. Left facial cellulitis --significant improvement, afebrile, no leukocytosis --meropenem (day #3) --cultures negative to date FEN Fluids: PO intake adequate Electrolytes: replete as indicated Nutrition: regular diet DVT prohylaxis: oob, ambulation, lovenox Dispo: continues to require inpatient care. Discharge tomorrow am on PO antibiotics. Full code. Visit type - Emergency Visit Emergency Visit: Yes ED Registration Date: 06/08/18 Care time: The patient presented to the Emergency Department on the above date and was hospitalized for further evaluation of their emergent condition. - New Patient This patient is new to me today: No - Critical Care Critical Care patient: No - Discharge Referral Referred to [facility] No
[2018-06-09] MEDS: ESCITALOPRAM OXALATE 10 MG TABLET (FP) PO SCH (09:46)
[2018-06-09] MEDS: ENOXAPARIN NA (PORCINE) 40 MG/0.4 ML DISP.SYRIN SQ SCH (09:46)
[2018-06-09] MEDS: PANTOPRAZOLE 40 MG TABLET (FP) PO SCH (09:46)
[2018-06-09] MEDS ORDERED: DIPHENOXYLATE 2.5/ATROPINE.025 1 COMBO TABLET PO SCH (10:45)
[2018-06-09] MEDS: clonazePAM 0.5 MG TABLET PO PRN (23:12)
[2018-06-10] MEDS ORDERED: DEXTROSE 5%-WATER 100 ML IVPB ONE (00:57)
[2018-06-10] MEDS ORDERED: MEROPENEM 1 GM VIAL (RESTRICTED TO ID) IVPB ONE (00:57)
[2018-06-10] MEDS: MEROPENEM 1 GM in DEXTROSE 5%-WATER 100 ML IVPB SCH (01:47)
[2018-06-10 08:25] VITALS: BP 154/82; PULSE 63; TEMP 98.3
--- NOTE | 2018-06-10 08:47 | DS ---
Physical Exam: SUBJECTIVE: Patient seen and examined OBJECTIVE: Vital Signs Period Temp Pulse Resp BP Sys/Ferrell Pulse Ox Last 24 Hr 98.0 F-98.3 F 62-73 16-20 132-164/57-82 96-98 PHYSICAL EXAM GENERAL: The patient is awake, alert, and fully oriented, in no acute distress. HEAD: Erythema continues to resolve, swelling around eye resolved EYES: PERRL, extraocular movements intact, sclera anicteric, conjunctiva clear. LUNGS: Breath sounds equal, clear to auscultation bilaterally, no wheezes, no crackles, no accessory muscle use. HEART: Regular rate and rhythm, S1, S2 ABDOMEN: Soft, nontender, nondistended EXTREMITIES: 2+ pulses, warm, well-perfused, no edema. NEUROLOGICAL: Cranial nerves II through XII grossly intact. Normal speech, steady gait. LABS CBCD WBC 6.6 K/mm3 (4.0-10.8) 06/07/18 07:14 RBC 3.87 M/mm3 (3.60-5.2) 06/07/18 07:14 Hgb 12.0 GM/dl (10.7-15.3) 06/07/18 07:14 Hct 35.5 % (32.4-45.2) 06/07/18 07:14 MCV 91.8 fl (80-96) 06/07/18 07:14 MCHC 33.8 g/dl (32.0-36.0) 06/07/18 07:14 RDW 13.9 % (11.6-15.6) 06/07/18 07:14 Plt Count 173 K/MM3 (134-434) 06/07/18 07:14 MPV 9.3 fl (7.5-11.1) 06/07/18 07:14 CMP Sodium 136 mmol/L (136-145) 06/06/18 18:45 Potassium 3.6 mmol/L (3.5-5.1) 06/06/18 18:45 Chloride 101 mmol/L (98-107) 06/06/18 18:45 Carbon Dioxide 25 mmol/L (21-32) 06/06/18 18:45 Anion Gap 10 MMOL/L (8-16) 06/06/18 18:45 BUN 12 mg/dl (7-18) 06/06/18 18:45 Creatinine 0.8 mg/dl (0.55-1.3) 06/06/18 18:45 Creat Clearance w eGFR 71.12 (>60) 06/06/18 18:45 Calcium 8.7 mg/dl (8.5-10) 06/06/18 18:45 Total Bilirubin 0.7 mg/dl (0.2-1) 06/06/18 18:45 AST 13 U/L (15-37) L 06/06/18 18:45 ALT 10 U/L (13-61) L 06/06/18 18:45 Alkaline Phosphatase 75 U/L (45-117) 06/06/18 18:45 Total Protein 6.3 g/dl (6.4-8.2) L 06/06/18 18:45 Albumin 3.5 g/dl (3.4-5.0) 06/06/18 18:45 HOSPITAL COURSE: Date of Admission:06/08/18 Date of Discharge: 06/10/18 Pre hospital course 68 year-old female with a PMH significant for emphysema and colitis, admitted for facial cellulitis. Four days ago was putting on makeup and stuck her left eye with a mascara wand. The next day she started to develop pain and swelling to the left eye and left cheek. Hospital course Left facial cellulitis --treated with meropenem x 4 days, discharged on PO clindamycin --cultures negative --significant improvement observed, remained afebrile and without leukocytosis during hospital stay Minutes to complete discharge: 35 Discharge Summary Reason For Visit: CELLULITIS OF FACE Current Active Problems Facial cellulitis (Acute) Condition: Stable - Instructions Diet, Activity, Other Instructions: A prescription has been sent to your pharmacy for clindamycin which is an antibiotic. Take this medications as directed and be sure to finish all the medication. You should follow up with your primary care provider in one week. Disposition: HOME - Home Medications Comprehensive Discharge Medication List: Ambulatory Orders Clonazepam 0.5 mg PO HS PRN 05/28/17 Diphenoxylate HCl/Atropine [Diphenoxylate-Atrop 2.5-0.025] 1 each PO DAILY 05/28 Escitalopram Oxalate [Lexapro -] 15 mg PO DAILY 05/28/17 Omeprazole 40 mg PO DAILY 05/28/17 Clindamycin [Cleocin -] 300 mg PO TID #21 capsule 06/10/18 This patient is new to me today: No Emergency Visit: Yes ED Registration Date: 06/08/18 Care time: The patient presented to the Emergency Department on the above date and was hospitalized for further evaluation of their emergent condition. Critical Care patient: No - Discharge Referral Referred to [facility] No
== END 2018-06-10 09:18 | disposition home or self-care (01) | DRG 603 ==
LOC: FER 17:05 → INTOOBSV 20:53 → FM/S 20:53 → UNDOADMOB 20:53 → FM/S 21:58 → OBSVTOIN 06-08 09:51 → FM/S 06-09 16:01
PROVIDERS: ADMIT Internal Medicine; ATTEND Nurse Practitioner Acute Care
DX: L03.211 Cellulitis of face (principal); J43.9 Emphysema, unspecified; F17.210 Nicotine dependence, cigarettes, uncomplicated; F12.10 Cannabis abuse, uncomplicated
CPT/HCPCS: 36415; 70487-TC; 71045-TC-FY; 80053; 81003; 81015; 82803; 83605; 84484; 85025; 85027; 85610; 85730; 87040; 87086; 93005; 99283-25; G0378

== ENCOUNTER 2021-10-31 06:07 | Inpatient (IN) | payer OTHER ==
[2021-10-28 15:55] VITALS: BMI 27.4
[2021-10-31] MEDS ORDERED: PROPOFOL 60 ML ONE (06:49)
[2021-10-31] MEDS ORDERED: HYDROmorphone HCL/PF 1 MG/ML VIAL IVPUSH PRN (06:56)
[2021-10-31] MEDS ORDERED: ONDANSETRON 4 MG/2 ML VIAL IVPUSH PRN ×2 (06:56→09:19)
[2021-10-31] MEDS ORDERED: LACTATED RINGERS SOLUTION 1,000 ML IV SCH (07:00)
[2021-10-31] MEDS ORDERED: VANCOMYCIN 1,000 MG VIAL (RESTRICTED TO ID ONLY) ONE (07:11)
[2021-10-31] MEDS ORDERED: ROPIVACAINE HCL/PF 100 MG/20 ML VIAL ONE (07:15)
[2021-10-31] MEDS ORDERED: MIDAZOLAM HCL 2 MG/2 ML SINGLE DOSE VIAL ONE (07:15)
[2021-10-31] MEDS ORDERED: BUPIVACAINE HCL 50 ML ONE (07:29)
[2021-10-31] MEDS ORDERED: KETAMINE HCL 500 MG/10 ML VIAL ONE (08:17)
[2021-10-31] MEDS ORDERED: BUPIVICAINE 0.25%/MORPH PF/KETOROLAC - 51ML DISP.SYRINGE IA ONE (08:46)
[2021-10-31] MEDS ORDERED: SENNOSIDES/DOCUSATE COMBO (SENNA PLUS) TABLET (UD) PO PRN (09:19)
[2021-10-31] MEDS ORDERED: clonazePAM 0.5 MG ODT TABLETS SL PRN (09:26)
[2021-10-31] MEDS ORDERED: SODIUM CHLORIDE 1,000 ML IV SCH (09:30)
[2021-10-31] MEDS ORDERED: PATIENT'S OWN MEDICATION (NON-FORMULARY) (Omeprazole [Omeprazole] 20 MG Tablet.Dr) PO SCH (10:00)
[2021-10-31] MEDS ORDERED: ceFAZolin 2 GRAM PREMIX BAG IVPB SCH (10:00)
[2021-10-31] MEDS: oxyCODONE HCL 5 MG TABLET PO PRN ×3 (13:32→23:48)
[2021-10-31] MEDS: CEFAZOLIN SODIUM 2 GM in DEXTROSE 5%-WATER 100 ML IVPB SCH (15:52)
[2021-10-31] MEDS: oxyCODONE HCL 10 MG SUSTAINED ACTING TABLET PO SCH (22:21)
[2021-10-31] MEDS: amLODIPine BESYLATE 5 MG TABLET (FP) PO SCH (22:22)
[2021-11-01] MEDS: CEFAZOLIN SODIUM 2 GM in DEXTROSE 5%-WATER 100 ML IVPB SCH (01:01)
[2021-11-01] MEDS: oxyCODONE HCL 5 MG TABLET PO PRN ×3 (05:31→18:18)
[2021-11-01] MEDS: ACETAMINOPHEN 325 MG TABLET (FP) PO PRN ×3 (05:31→18:18)
[2021-11-01 08:29] LABS: BILIRUBIN,TOTAL 0.7 mg/dl (0.2-1); CALCIUM 8.2 mg/dl (8.5-10); CREATININE 0.6 mg/dl (0.55-1.3); TOT PROT 5.5 g/dl (6.4-8.2)
[2021-11-01 08:53] LABS: HEMATOCRIT 31.3 % (32.4-45.2); HEMOGLOBIN 10.5 G/dL (10.7-15.3); MCH 29.6 pg (25.7-33.7); MCHC 33.5 g/dl (32.0-36.0); MEAN CELL VOLUME 88.4 fl (80-96); MEAN PLT VOLUME 8.7 fl (7.5-11.1); PLATELET COUNT 206.4 10^3/uL (134-434); RBC 3.54 10^6/uL (3.60-5.2); RDW 15.5 % (11.6-15.6); WHITE BLOOD COUNT 6.6 10^3/uL (4.0-10.8)
[2021-11-01] MEDS: oxyCODONE HCL 10 MG SUSTAINED ACTING TABLET PO SCH ×2 (09:22→21:30)
[2021-11-01] MEDS: ENOXAPARIN NA (PORCINE) 40 MG/0.4 ML DISP.SYRIN SQ SCH (09:22)
[2021-11-01] MEDS: PANTOPRAZOLE 40 MG TABLET PO SCH (09:23)
[2021-11-01] MEDS: SERTRALINE HCL 50 MG TABLET (FP) PO SCH (09:23)
[2021-11-01 18:25] VITALS: RESP 18
[2021-11-01] MEDS: amLODIPine BESYLATE 5 MG TABLET (FP) PO SCH (21:30)
[2021-11-02] MEDS: oxyCODONE HCL 5 MG TABLET PO PRN ×4 (00:10→14:51)
[2021-11-02] MEDS: ACETAMINOPHEN 325 MG TABLET (FP) PO PRN ×3 (00:11→14:50)
[2021-11-02 08:30] LABS: HEMATOCRIT 31.9 % (32.4-45.2); HEMOGLOBIN 10.8 G/dL (10.7-15.3); MCH 30.6 pg (25.7-33.7); MCHC 33.9 g/dl (32.0-36.0); MEAN CELL VOLUME 90.5 fl (80-96); MEAN PLT VOLUME 9.1 fl (7.5-11.1); PLATELET COUNT 216.9 10^3/uL (134-434); RBC 3.53 10^6/uL (3.60-5.2); RDW 15.5 % (11.6-15.6); WHITE BLOOD COUNT 7.2 10^3/uL (4.0-10.8)
[2021-11-02] MEDS ORDERED: MAGNESIUM HYDROX 2400MG/30ML ORAL SUSPENSION 30 ML CUP PO ONE (09:21)
[2021-11-02] MEDS: PANTOPRAZOLE 40 MG TABLET PO SCH (09:31)
[2021-11-02] MEDS: oxyCODONE HCL 10 MG SUSTAINED ACTING TABLET PO SCH (09:34)
[2021-11-02] MEDS: ENOXAPARIN NA (PORCINE) 40 MG/0.4 ML DISP.SYRIN SQ SCH (09:38)
[2021-11-02] MEDS ORDERED: ASPIRIN COATED 81 MG TABLET.EC PO SCH (10:00)
[2021-11-02] MEDS: SERTRALINE HCL 50 MG TABLET (FP) PO SCH (11:24)
[2021-11-02 11:27] VITALS: BP 138/54; PULSE 104; TEMP 98.4
== END 2021-11-02 14:55 | disposition home or self-care (01) | DRG 470 ==
LOC: FM/S 06:07
PROVIDERS: ADMIT Orthopaedic Surgery; ATTEND Nurse Practitioner Family
PROC: 8E0W0CZ Robotic Assisted Procedure of Trunk Region, Open Approach (ICD-10-PCS; 2021-10-31)
PROC: 0SRB03A Replacement of Left Hip Joint with Ceramic Synthetic Substitute, Uncemented, Open Approach (ICD-10-PCS; principal; 2021-10-31 08:01)
DX: M16.12 Unilateral primary osteoarthritis, left hip (principal); I10 Essential (primary) hypertension; J44.9 Chronic obstructive pulmonary disease, unspecified; E78.5 Hyperlipidemia, unspecified; F17.210 Nicotine dependence, cigarettes, uncomplicated; M25.552 Pain in left hip; F41.8 Other specified anxiety disorders
CPT/HCPCS: 36415; 73502-TC-LT-FY; 80053; 85027; 88305-TC; 88311-TC; 94760; 97010-GP; 97116-GP; 97161-GP

== ENCOUNTER 2022-10-25 10:43 | Observation (INO) | payer OTHER ==
[2022-10-25] MEDS ORDERED: ACETAMINOPHEN 1000 MG/100 ML BAG IVPB ONE (11:27)
[2022-10-25] MEDS ORDERED: LACTATED RINGERS SOLUTION 1000 ML INFUS.BAG IV ONE ×2 (11:27→12:39)
[2022-10-25] MEDS ORDERED: ACETAMINOPHEN INJECTION 100 ML IVPB ONE (11:31)
[2022-10-25 12:15] LABS: HEMATOCRIT 44.8 % (32.4-45.2); HEMOGLOBIN 14.9 G/dL (10.7-15.3); MCH 30.2 pg (25.7-33.7); MCHC 33.2 g/dl (32.0-36.0); MEAN PLT VOLUME 7.9 fl (7.5-11.1); PLATELET COUNT 145.5 10^3/uL (134-434); RBC 4.92 10^6/uL (3.60-5.2); RDW 14.1 % (11.6-15.6); WHITE BLOOD COUNT 7.4 10^3/uL (4.0-10.8)
[2022-10-25 12:35] LABS: BLOOD UREA NITROGEN 24.5 mg/dl (7-18); CALCIUM 8.6 mg/dl (8.5-10.1); CREATININE 1.7 mg/dl (0.6-1.3); POTASSIUM 3.7 mmol/L (3.5-5.1); SGOT/AST 16.4 U/L (15-37); SGPT/ALT 8.8 U/L (7-52); TOT PROT 6.5 g/dl (6.4-8.2)
[2022-10-25 12:57] LABS: PLATELET ESTIMATE ADEQUATE
[2022-10-25 13:57] LABS: BILIRUBIN,TOTAL 0.8 mg/dL (0.2-1)
[2022-10-25 14:39] LABS: ALBUMIN 3.5 g/dl (3.4-5.0); CALCIUM 7.8 mg/dl (8.5-10.1); CREATININE 1.5 mg/dl (0.6-1.3); POTASSIUM 3.5 mmol/L (3.5-5.1); SGOT/AST 15.2 U/L (15-37); TOT PROT 5.6 g/dl (6.4-8.2)
[2022-10-25 15:22] LABS: BILIRUBIN,TOTAL 0.3 mg/dL (0.2-1)
[2022-10-25 15:24] VITALS: RESP 18
[2022-10-25] MEDS ORDERED: OSELTAMIVIR PHOSPHATE 75 MG CAPSULE ONE (15:44)
[2022-10-25] MEDS ORDERED: OSELTAMIVIR PHOSPHATE 75 MG CAPSULE PO ONE (15:45)
[2022-10-25 17:18] VITALS: BMI 27.7
[2022-10-25] MEDS ORDERED: ACETAMINOPHEN 325 MG TABLET (FP) PO PRN (17:40)
[2022-10-25] MEDS ORDERED: SODIUM CHLORIDE 0.45% 1,000 ML IV SCH (17:45)
[2022-10-25] MEDS ORDERED: clonazePAM 0.5 MG TABLET PO PRN (22:00)
[2022-10-25] MEDS ORDERED: OSELTAMIVIR PHOSPHATE 45 MG CAPSULE PO SCH (22:00)
[2022-10-25] MEDS: OSELTAMIVIR PHOSPHATE 30 MG CAPSULE PO SCH (22:05)
[2022-10-26] MEDS ORDERED: ALBUTEROL SO4 HFA INHALER IH PRN (03:36)
[2022-10-26] MEDS ORDERED: LACTATED RINGERS SOLUTION 1,000 ML/1,000 ML INFUS.BAG IV SCH (07:30)
[2022-10-26 08:58] LABS: HEMATOCRIT 38.6 % (32.4-45.2); HEMOGLOBIN 12.8 G/dL (10.7-15.3); MCH 30.3 pg (25.7-33.7); MCHC 33.2 g/dl (32.0-36.0); MEAN CELL VOLUME 91.2 fl (80-96); MEAN PLT VOLUME 8.5 fl (7.5-11.1); PLATELET COUNT 128.8 10^3/uL (134-434); RBC 4.23 10^6/uL (3.60-5.2); RDW 14.4 % (11.6-15.6); WHITE BLOOD COUNT 4.3 10^3/uL (4.0-10.8)
[2022-10-26] MEDS ORDERED: guaiFENesin/D-METHORPHAN HB 10 ML UNIT-DOSE CUPS PO SCH (09:00)
[2022-10-26] MEDS: OSELTAMIVIR PHOSPHATE 30 MG CAPSULE PO SCH (09:21)
[2022-10-26 09:24] VITALS: BP 161/61; TEMP 98.1
[2022-10-26 09:29] LABS: ALBUMIN 3.5 g/dl (3.4-5.0); BLOOD UREA NITROGEN 19.2 mg/dl (7-18); CALCIUM 8.3 mg/dl (8.5-10.1); CREATININE 0.7 mg/dl (0.6-1.3); MAGNESIUM 1.8 mg/dL (1.8-2.4); PHOSPHOROUS 3.05 (2.5-4.9); POTASSIUM 3.5 mmol/L (3.5-5.1); SGOT/AST 15.6 U/L (15-37); SGPT/ALT 7.6 U/L (7-52); TOT PROT 5.5 g/dl (6.4-8.2)
[2022-10-26 10:00] VITALS: PULSE 86
[2022-10-26] MEDS ORDERED: SERTRALINE HCL 50 MG TABLET (FP) PO SCH (10:00)
[2022-10-26] MEDS ORDERED: NICOTINE 7 MG/24 HOURS TOPICAL PATCH TD SCH (10:00)
[2022-10-26] MEDS ORDERED: PANTOPRAZOLE 40 MG TABLET PO SCH (10:00)
[2022-10-26] MEDS ORDERED: OSELTAMIVIR PHOSPHATE 6 MG/1 ML PO ONE (11:15)
[2022-10-26 12:08] LABS: BILIRUBIN,TOTAL 0.2 mg/dL (0.2-1)
== END 2022-10-26 12:46 | disposition home or self-care (01) ==
LOC: FER 10:43 → FM/S 15:18
PROVIDERS: ADMIT Internal Medicine; ATTEND Internal Medicine
PROC: 3E033NZ Introduction of Analgesics, Hypnotics, Sedatives into Peripheral Vein, Percutaneous Approach (ICD-10-PCS; principal; 2022-10-25)
PROC: 3E0337Z Introduction of Electrolytic and Water Balance Substance into Peripheral Vein, Percutaneous Approach (ICD-10-PCS; 2022-10-25)
DX: J09.X2 Influenza due to identified novel influenza A virus with other respiratory manifestations (principal); Z88.0 Allergy status to penicillin; N17.9 Acute kidney failure, unspecified; E78.5 Hyperlipidemia, unspecified; J44.9 Chronic obstructive pulmonary disease, unspecified; I10 Essential (primary) hypertension; M19.90 Unspecified osteoarthritis, unspecified site; R00.0 Tachycardia, unspecified; R09.02 Hypoxemia; Z87.39 Personal history of other diseases of the musculoskeletal system and connective tissue; F17.200 Nicotine dependence, unspecified, uncomplicated
CPT/HCPCS: 0241U-QW; 36415; 71045-TC-FY; 80053; 83735; 84100; 85027; 87045; 87046; 93005; 96361; 96374; 97116-GP; 97162-GP; 99285-25; G0378

== ENCOUNTER 2023-12-22 09:58 | Day surgery (SDC) | payer OTHER ==
[2023-12-20 16:17] VITALS: BMI 26.6
[2023-12-22] MEDS ORDERED: PROPOFOL 40 ML ONE (11:09)
[2023-12-22 12:16] VITALS: RESP 16; TEMP 97.6
[2023-12-22 12:28] VITALS: BP 145/76; PULSE 84
== END 2023-12-22 12:35 | disposition home or self-care (01) ==
LOC: FASU-ENDO 09:58
PROVIDERS: ATTEND Internal Medicine Gastroenterology
PROC: 0DB78ZX Excision of Stomach, Pylorus, Via Natural or Artificial Opening Endoscopic, Diagnostic (ICD-10-PCS; 2023-12-22)
PROC: 0DB68ZX Excision of Stomach, Via Natural or Artificial Opening Endoscopic, Diagnostic (ICD-10-PCS; 2023-12-22)
PROC: 0DB48ZX Excision of Esophagogastric Junction, Via Natural or Artificial Opening Endoscopic, Diagnostic (ICD-10-PCS; 2023-12-22)
PROC: 0DB98ZX Excision of Duodenum, Via Natural or Artificial Opening Endoscopic, Diagnostic (ICD-10-PCS; principal; 2023-12-22 11:49)
DX: K21.00 Gastro-esophageal reflux disease with esophagitis, without bleeding (principal); K44.9 Diaphragmatic hernia without obstruction or gangrene; K22.70 Barrett's esophagus without dysplasia; K29.50 Unspecified chronic gastritis without bleeding
CPT/HCPCS: 88305-TC; 88342-TC